=== PATIENT | male | born 1990 | race Caucasian/White ===

== ENCOUNTER 2018-03-04 03:10 | Inpatient (IN) | payer OTHER ==
[~2018-03-04] VITALS: Ht 177.8 cm; Wt 72.6 kg
--- NOTE | 2018-03-04 03:41 | ED PSYCHIATRIC COMPLAINT ---
History of Present Illness General Chief Complaint: Psychiatric Related Complaint Stated Complaint: ATTEMPTED SUICIDE Source: patient, police Exam Limitations: evasive historian Vital Signs & Intake/Output Vital Signs & Intake/Output Vital Signs Date Time Temp Pulse Resp B/P B/P Pulse O2 O2 Flow FiO2 Mean Ox Delivery Rate 03/04 0844 96.0 70 16 112/63 99 Room Air 03/04 0613 98.0 74 17 122/68 97 Room Air 03/04 0335 97.2 89 18 126/75 98 Room Air 03/04 0321 Room Air Allergies Coded Allergies: No Known Allergies (03/04/18) Triage Note: PT BIBA FROM HOME S/P SI ATTEMPT. PT TIED ROPE AROUND NECK AND SENT PICTURE TO GIRLFRIEND BECAUSE THEY HAD AN ARGUMENT. PER PT THE PICTURE WAS TAKEN OUT OF CONTEXT AND DENIES SI HERE. DENIES HI. DENIES ILLICIT DRUG USE. PT HAS LIGATURE SMITH TO L SIDE OF NECK. PT INITIALLY CALM AND COOPERATIVE UPON ARRIVAL UNTIL POLICIES AND PROCEDURES WERE EXPLAINED REGARDING PT PEER. PT AGITATED ABOUT POC, SITTER IN PLACE PT IS AN ELOPEMENT RISK. SECURITY TO BEDSIDE FOR WANDING AND PT NOW CHANGING INTO BLUE PAPER SCRUBS. Triage Nurses Notes Reviewed? yes HPI: Patient presents for evaluation of an attempted hanging. According to the police, the patient's girlfriend had cut him down after attempted hanging himself with an extension cord. The patient himself states that he did have an altercation with his girlfriend and he walked to the train tracks. He then returned home took a shower and at that point the police showed up and brought him to the emergency department. He states that he was simply trying to get back at his girlfriend and that he didn't even have the extension cord "connected to anything". Patient states that he smokes occasional marijuana but denies alcohol use or cigarette smoking. He has no specific complaint at this time. (Ashley WHITMAN,Abhijit Peñaloza) Reconcile Medications No Known Home Medications (Jazmin WHITMAN,Christopher) Past History Travel History Traveled to [place] past 21 day No Medical History Any Pertinent Medical History? see below for history Neurological: NONE EENT: NONE Cardiovascular: NONE Respiratory: NONE Gastrointestinal: NONE Hepatic: NONE Renal: NONE Musculoskeletal: NONE Psychiatric: NONE Endocrine: NONE Blood Disorders: NONE Cancer(s): NONE PROGRAM SUPPORT SPECIALIST/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: NONE Surgical History Surgical History: non-contributory Psychosocial History What is your primary language Congolese Tobacco Use: Never used Illicit Drug Use: marijuana Family History Hx Contributory? No (Ashley WHITMAN,Abhijit Peñaloza) Review of Systems Review of Systems Constitutional: Reports: no symptoms. EENTM: Reports: no symptoms. Respiratory: Reports: no symptoms. Cardiovascular: Reports: no symptoms. GI: Reports: no symptoms. Genitourinary: Reports: no symptoms. Musculoskeletal: Reports: no symptoms. Skin: Reports: no symptoms. Neurological/Psychological: Reports: see HPI. Hematologic/Endocrine: Reports: no symptoms. Immunologic/Allergic: Reports: no symptoms. All Other Systems: Reviewed and Negative (Ashley WHITMAN,Abhijit Peñaloza) Physical Exam Physical Exam General Appearance: see below Neurological/Psychiatric: see below Comments: Gen.: Well-nourished, well-developed, no acute respiratory distress. Head: Normocephalic, atraumatic. Eyes: Normal inspection bilaterally Ears: Normal inspection bilaterally Nose: Normal inspection Throat/mouth : Moist mucosa Neck: Supple, full range of motion, no goiter, linear erythema encircling the neck consistent with mild ligature smith, no stridor, no ecchymoses Heart: Regular rate and rhythm, no murmurs rubs or gallops Lungs: Clear to auscultation bilaterally with normal air entry Chest: Nontender Back: Normal range of motion Abdomen: Soft, nontender, nondistended, normal bowel sounds Extremities: Normal range of motion grossly, equal radial pulses, no cyanosis clubbing or edema Neurologic: Cranial nerves grossly intact, speech is clear Skin: warm and dry Psychiatric: Calm, cooperative, no apparent delusions or hallucinations, patient appears frustrated and mildly agitated SAD PERSONS Done? deferred to crisis (Ashley WHITMAN,Abhijit Peñaloza) Progress Differential Diagnosis: anxiety, depression, grieving, borderline personality disorder Plan of Care: Orders Procedure Date/time Status Regular Diet 03/04 L Active Continuous Observation Monitor 03/04 1900 Active Continuous Observation Monitor 03/04 1500 Active Continuous Observation Monitor 03/04 1100 Active Patient Data - inpatient psych 03/04 1009 Active Admit to inpatient psych 03/04 1009 Active Continuous Observation Monitor 03/04 0700 Active Continuous Observation Monitor 03/04 0340 Active URINE DRUG SCREEN FOR ER ONLY 03/04 0340 Complete ETHANOL 03/04 0340 Complete CBC WITHOUT DIFFERENTIAL 03/04 340 Complete BASIC METABOLIC PANEL 03/04 340 Complete ED CRISIS PSYCH CONSULT 03/04 340 Active Vital Signs 03/04 UNK Active Activity/Ambulation 03/04 UNK Active Current Medications Sig/Iker Start time Last Medication Dose Stop Time Status Admin Hydroxyzine HCl 50 MG Q6P PRN 03/04 1015 UNVr (Atarax) Trazodone HCl 50 MG AT BEDTIME NEED.. 03/04 1015 UNVr (Desyrel) Laboratory Tests 03/04/18 0357: Anion Gap 10, Estimated GFR > 60, BUN/Creatinine Ratio 17.0, Glucose 81, Calcium 9.2, CBC w Diff NO MAN DIFF REQ, RBC 3.80 L, MCV 86.3, MCH 30.2, MCHC 35.0, RDW 13.7, MPV 9.6, Gran % 55.0, Lymphocytes % 31.6, Monocytes % 6.8, Eosinophils % 6.1 H, Basophils % 0.5, Absolute Granulocytes 4.1, Absolute Lymphocytes 2.3, Absolute Monocytes 0.5, Absolute Eosinophils 0.5, Absolute Basophils 0, Serum Alcohol < 10.0 03/04/18 0327: Urine Opiates Screen 735.00, Methadone Screen < 40, Barbiturate Screen < 60, Ur Phencyclidine Scrn < 6.00, Amphetamines Screen < 100, U Benzodiazepines Scrn > 800 H, Urine Cocaine Screen < 50, Urine Cannabis Screen 27.20 Comments: 03/04/2018 7:28:29 AM patient signed out to Dr. Wu at shift currency exchange specialist. (Ashley WHITMAN,Abhijit Peñaloza) Departure Departure Disposition: STILL A PATIENT Departure Forms: Customer Survey General Discharge Information (Abhijit Ramirez MD) Departure Condition: Fair Clinical Impression Primary Impression: Depression with suicidal ideation Secondary Impressions: Suicide attempt Prescriptions: Current Visit Scripts No Known Home Medications Psych Admission Note Psychiatric Admission: I have seen and evaluated MAGGY SOLIZ. I have also reviewed all the pertinent lab results and diagnostic results. MAGGY SOLIZ will be admitted to our inpatient Psychiatric unit for treatment and care. (Jazmin WHITMAN,Christopher)
[2018-03-04 04:08] LABS: ABSOLUTE BASOPHIL COUNT 0 /CUMM (0.0-0.2); ABSOLUTE EOSINOPHIL COUNT 0.5 /CUMM (0.0-0.7); ABSOLUTE GRANULOCYTE CT 4.1 /CUMM (1.4-6.5); ABSOLUTE LYMPH COUNT 2.3 /CUMM (1.2-3.4); ABSOLUTE MONOCYTE COUNT 0.5 /CUMM (0.10-0.60); BASOPHIL % 0.5 % (0.0-2.0); EOSINOPHIL % 6.1 % (0-5); HEMATOCRIT 32.8 % (42-52); MEAN CORPUSCULAR HGB 30.2 PG (27.0-31.0); MEAN CORPUSCULAR VOLUME 86.3 FL (80.0-94.0); MEAN PLATELET VOLUME 9.6 FL (7.4-10.4); PLATELET COUNT 182 /CUMM (130-400); RBC DISTRIBUTION WIDTH 13.7 % (11.5-14.5); WHITE BLOOD CELL COUNT 7.4 /CUMM (4.8-10.8)
--- NOTE | 2018-03-04 09:52 | ED PSYCH CRISIS CONSULTATION ---
Crisis Consult Basic Assessment Date of Consult: 03/04/18 Responsible Person/Accompanied By: self Insurance Authorization: Insurance #1: Insurance name: SELF-PAY Phone number: Policy number: Group number: Authorization number: ED Provider: Patient's ED Provider: Abhijit Ramirez MD Primary Care Physician: Patient's PCP: Patient Has No Primary Care Dr PCP's Phone Number: Current Psychiatrist: n/a Chief Complaint: Psychiatric Related Complaint Patient's Quote: "I was just trying to make a point and took it too far." Present Illness: The pt is a 27yo male BIBA on a PEER for evaluation of SI. The medical record documents that 2x prior to this assessment the pt attempted to walk out of the ED and was stopped by ED staff. During this assessment the pt presented alert, oriented, cooperative and calm. The pt reports he was arguing with his girlfriend of 5 years when she stated the pt makes her want to end her life. The pt reports he then went to a closet, tied a short extension cord around a bar at chin height and wrapped the cord around his neck. The pt adamantly stated he had no intention of ending his life and instead wanted to scare his girlfriend. The pt stated "I was trying to make a point and too it too far." The pt reports his girlfriend then pulled him forward while cutting the cord with scissors. The pt reports the cord tightened when his girlfriend pulled him which left the visible namrata on his neck. The pt reports he then moved his girlfriend who was blocking the exit and went into the santos. The pt reports he then returned a short time later in order to vape and discovered the police were looking for him. The pt denies SI, HI, AH and VH. The pt denies any hx of SI. The pt denies any problems with mood, appetite or concentration. The pt is requesting discharge and stated he was trying to make a point to his girlfriend about threatening suicide. The pt reports he lost 4 friends due to suicide. The pt stated his girlfriend, parents and sister are supportive of him. The pts toxicology screen is positive for benzodiazepines. The pt reports he takes 1 Xanax per week which he buys off the street. The pt reports his only psychiatric treatment was at the age of 10 when his parents . Throughout the assessment the pt reiterated he had no intent to end his life and stated I have too much to live for. The pt stated he is concerned missing work will cost him his new job. 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 CSSRS completed and placed in the pts chart. This repairer typewriter spoke by phone with the pts girlfriend Merary Verde ). Merary stated she and the pt were arguing yesterday about an old stressor and current financial pressures. Merary reports the pt stated he will kill himself before walking to a closet, tying an extension cord around the bar and wrapping it around his neck. Merary reports the pt then pulled the cord tight with his hand and was more strangling than hanging. Merary reports the pts face was turning red and she then cut the cord with scissors. Merary reports after she cut the cord the pt unwrapped it from his neck and stated I am going into the santos to kill myself. Merary reports she then called the police as the pt walked into the santos. Merary stated while she was outside with the police the pt returned and was found showering in their apartment. Brittany reports she has been dating the pt for 5 years and they have been living together for 3 years. Brittany reports she is not aware of any past SI for the pt. Brittany reports the pt is not an impulsive person. Brittany stated she is aware the pt takes 1 pill of Xanax 1x per week. Pts presentation and hx discussed by phone with Dr. Kaufman, pt placed on a PEC with a plan for admission to [facility]. Addressed with the pt the PEC and plan for admission. Pt stated he disagrees with the plan for admission. Patient's Address: [address] [place] [address] Other Phone Number: Who Do You Live With? Other (see notes) (girlfriend) Family/Informants Interviewed: Girlfriend Merary Allergies - Coded Allergies: No Known Allergies (03/04/18) Current Medications - No Known Home Medications Laboratory Results: Laboratory Tests 03/04/18 0357: Anion Gap 10, Estimated GFR > 60, BUN/Creatinine Ratio 17.0, Glucose 81, Calcium 9.2, CBC w Diff NO MAN DIFF REQ, RBC 3.80 L, MCV 86.3, MCH 30.2, MCHC 35.0, RDW 13.7, MPV 9.6, Gran % 55.0, Lymphocytes % 31.6, Monocytes % 6.8, Eosinophils % 6.1 H, Basophils % 0.5, Absolute Granulocytes 4.1, Absolute Lymphocytes 2.3, Absolute Monocytes 0.5, Absolute Eosinophils 0.5, Absolute Basophils 0, Serum Alcohol < 10.0 03/04/18 0327: Urine Opiates Screen 735.00, Methadone Screen < 40, Barbiturate Screen < 60, Ur Phencyclidine Scrn < 6.00, Amphetamines Screen < 100, U Benzodiazepines Scrn > 800 H, Urine Cocaine Screen < 50, Urine Cannabis Screen 27.20 Past History Past Medical History Neurological: NONE EENT: NONE Cardiovascular: NONE Respiratory: NONE Gastrointestinal: NONE Hepatic: NONE Renal: NONE Musculoskeletal: NONE Psychiatric: NONE Endocrine: NONE Blood Disorders: NONE Cancer(s): NONE 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 ASSISTANT/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: NONE Past Surgical History Surgical History: non-contributory Psychosocial History Strengths/Capabilities: employed, stable housing, supportive girlfriend and family Physical Limitations (Interventions): n/a Psychiatric Treatment History Psych Treatment Psychiatric Treatment Yes Inpatient Treatment No Outpatient Treatment Yes Location of Treatment pt does not remember name of therapist Reason for Treatment parents divorce Dates of Treatment age of 10 Response to Treatment unknown Diagnosis by History: n/a Substance Use/Abuse History Drug Use/Abuse Substances Used/Abused Yes Substance Used/Abused Benzodiazepines First Use pt reports he is unsure Last Used pt reports 03/02/18 How much used/taken "1 pill of Xanax" How often pt reports 1x per week For how long unkown Route of use ingest Substance Abuse Treatment Substance Abuse Treatment Past Substance Abuse [place] No Current Mental Status Mental Status Orientation: Person, Place, Situation Affect: WNL Speech: WNL Neuro-vegetative: WNL Appearance Appearance- Dress/Hygiene: appropriate Behaviors Thought Process: WNL Thought Content: WNL Memory: WNL Insight: Poor SI/HI Risk Assessment Past Suicidal Ideation/Attempts No Current Suicidal Ideation/Att No (denied) Past Homicidal Ideation/Att: No Current Homicidal Ideation/Attempts No Degree of Intent: Made Preparations, Plan, Self Destructive/No Danger To: Self Gravely Disabled: Lack of Insight, Poor Impulse Control, Poor Judgment Risk Factors: access to lethal means, substance abuse, poor impulse control, male Lethality Ratin PTSD Checklist PTSD Done? patient declined ED Management Sitter: Yes Restraints: No DSM5/PS Stressors/Medical Prob Diagnosis' (DSM 5, Stressors, Medical): F32.9 Unspecified Depressive Disorder Current GAF: 29 Departure Disposition Psych Medical Clearance Date: 03/04/18 Medically Cleared at: 0800 Time Started: 0800 Time Ended: 0900 Psychiatrist Consulted: Dr. Kaufman Date Disposition Established: 03/04/18 Time Disposition Established: 1005 Plan for Disposition - Modality: Inpatient Psychiatry Facility: [facility] Rationale for Disposition: Pt is a risk to self and in need of hospitalization for safety. Pt placed on a PEC. Type of IP Admission: PEC Referrals Patient Has No Primary Care Dr (PCP/Family)
--- NOTE | 2018-03-04 11:14 | IP CRISIS DIAG ASSESS PSYCH ---
See Addendum Diagnostic Assessment Basic Assessment Primary Care Physician: Patient's PCP: Patient Has No Primary Care Dr PCP's Phone Number: Patient's Quote: "I was just trying to make a point andtook it too far." Present Illness: The pt is a 27yo male BIBA on a PEER for evaluation of SI. The medical record documents that 2x prior to this assessment the pt attempted to walk out of the ED and was stopped by ED staff. During this assessment the pt presented alert, oriented, cooperative and calm. The pt reports he was arguing with his girlfriend of 5 years when she stated the pt makes her want to end her life. The pt reports he then went to a closet, tied a short extension cord around a bar at chin height and wrapped the cord around his neck. The pt adamantly stated he had no intention of ending his life and instead wanted to scare his girlfriend. The pt stated "I was trying to make a point and too it too far." The pt reports his girlfriend then pulled him forward while cutting the cord with scissors. The pt reports the cord tightened when his girlfriend pulled him which left the visible namrata on his neck. The pt reports he then moved his girlfriend who was blocking the exit and went into the santos. The pt reports he then returned a short time later in order to vape and discovered the police were looking for him. The pt denies SI, HI, AH and VH. The pt denies any hx of SI. The pt denies any problems with mood, appetite or concentration. The pt is requesting discharge and stated he was trying to make a point to his girlfriend about threatening suicide. The pt reports he lost 4 friends due to suicide. The pt stated his girlfriend, parents and sister are supportive of him. The pts toxicology screen is positive for benzodiazepines. The pt reports he takes 1 Xanax per week which he buys off the street. The pt reports his only psychiatric treatment was at the age of 10 when his parents . Throughout the assessment the pt reiterated he had no intent to end his life and stated I have too much to live for. The pt stated he is concerned missing work will cost him his new job. 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 CSSRS completed and placed in the pts chart. This engineering technical writer spoke by phone with the pts girlfriend Merary Nixon ). Merary stated she and the pt were arguing yesterday about an old stressor and current financial pressures. Merary reports the pt stated he will kill himself before walking to a closet, tying an extension cord around the bar and wrapping it around his neck. Merary reports the pt then pulled the cord tight with his hand and was more strangling than hanging. Merary reports the pts face was turning red and she then cut the cord with scissors. Merary reports after she cut the cord the pt unwrapped it from his neck and stated I am going into the santos to kill myself. Merary reports she then called the police as the pt walked into the santos. Merary stated while she was outside with the police the pt returned and was found showering in their apartment. Brittany reports she has been dating the pt for 5 years and they have been living together for 3 years. Brittany reports she is not aware of any past SI for the pt. Brittany reports the pt is not an impulsive person. Brittany stated she is aware the pt takes 1 pill of Xanax 1x per week. Pts presentation and hx discussed by phone with Dr. Kaufman, pt placed on a PEC with a plan for admission to [facility]. Addressed with the pt the PEC and plan for admission. Pt stated he disagrees with the plan for admission. Patient's Address: [address] [place] [address] Other Phone Number: Who Do You Live With? Other (see notes) (girlfriend) Feel Safe Where You Live? Yes Feel Safe in Your Relationship Yes Marital Status: single Do You Have Children? No Primary Language? Russian Language(s) Spoken At Home: Russian Family/Informants Interviewed: Girlfriendarwin Reagan Allergies - Coded Allergies: No Known Allergies (03/04/18) Current Medications - No Known Home Medications Consequences of Psych Med Use: n/a Lab Results: Laboratory Tests 03/04/18 0357: Anion Gap 10, Estimated GFR > 60, BUN/Creatinine Ratio 17.0, Glucose 81, Calcium 9.2, CBC w Diff NO MAN DIFF REQ, RBC 3.80 L, MCV 86.3, MCH 30.2, MCHC 35.0, RDW 13.7, MPV 9.6, Gran % 55.0, Lymphocytes % 31.6, Monocytes % 6.8, Eosinophils % 6.1 H, Basophils % 0.5, Absolute Granulocytes 4.1, Absolute Lymphocytes 2.3, Absolute Monocytes 0.5, Absolute Eosinophils 0.5, Absolute Basophils 0, Serum Alcohol < 10.0 03/04/18 0327: Urine Opiates Screen 735.00, Methadone Screen < 40, Barbiturate Screen < 60, Ur Phencyclidine Scrn < 6.00, Amphetamines Screen < 100, U Benzodiazepines Scrn > 800 H, Urine Cocaine Screen < 50, Urine Cannabis Screen 27.20 Toxicology Screen Completed? Yes Results: positive Symptoms of Use: Pt reports taking Xanax 1x per week. Denies any negative consequences. Past History Past Medical History Medical History: None/Denies Past Surgical History Surgical History non-contributory Abuse/Trauma History Trauma History/Current Trauma: Denies Legal History Current Legal Status: none Have you ever been arrested? No Number of Arrests: [address] Dates: n/a [place] n/a Psychosocial History Strengths/Capabilities: employed, stable housing, supportive girlfriend and family Physical Limitations (Interventions): n/a Psychiatric Treatment History Psych Treatment Psychiatric Treatment Yes Inpatient Treatment No Outpatient Treatment Yes Location of Treatment pt does not remember name of therapist Reason for Treatment parents divorce Dates of Treatment age of 10 Response to Treatment unknown Diagnosis by History: n/a Risk Factors: access to lethal means, substance abuse, poor impulse control, male Substance Use/Abuse History Drug Use/Abuse minimum 12mo Hx Substances Used/Abused Yes Substance Used/Abused Benzodiazepines First Use pt reports he is unsure Last Used pt reports 03/02/18 How much used/taken "1 pill of Xanax" How often pt reports 1x per week For how long unkown Route of use ingest Substance Abuse Treatment Substance Abuse Treatment Past Substance Abuse [place] No Sexual History Sexually Active Yes Sexual Orientation Heterosexual Education History Highest Level of Education: high school/GED Preferred Learning Style: visual, auditory, experiential Current Mental Status Mental Status Orientation: Person, Place, Situation Affect: WNL Speech: WNL Neuro-vegetative: WNL Appearance Appearance- Dress/Hygiene: appropriate Behaviors Thought Process: WNL Thought Content: WNL Memory: WNL Insight: Poor SI/HI Risk Assessment - Minimum 6mo History- Past Suicidal Ideation/Attempts No Current Suicidal Ideation/Att No (denied) Past Homicidal Ideation/Att: No Current Homicidal Ideation/Attempts No Degree of Intent: Made Preparations, Plan, Self Destructive/No Danger To: Self Gravely Disabled: Lack of Insight, Poor Impulse Control, Poor Judgment Risk Factors: access to lethal means, substance abuse, poor impulse control, male Lethality Ratin Needs/Init TX Plan/Goals: Monitor mental status and safety, participate in medication management, individual, group and milieu therapy. AUDIT-C Questionnaire: AUDIT-C Questionnaire: Response Value ETOH use in the past year Never 0 Total 0 DSM5/PS Stressors/Medical Prob Diagnosis' (DSM 5, Stressors, Medical): F32.9 Unspecified Depressive Disorder Current GAF: 29
[2018-03-04 11:51] VITALS: BP 137/77
--- NOTE | 2018-03-04 12:00 | CPS PROVIDER INIT ASMT PSYCH ---
Psychiatric Admission Engine Cleaner's Note Reviewed: Yes Patient Seen and Examined: Yes Identifying Information: 27yoM with no formal psych hx Chief Complaint: "things got blown out of proportion" Reaction to Hospitalization: none History of Present Illness Onset of Illness: recent Circumstances Leading to Admission: ?SA Problem(s) Justifying Need for Admission: danger to self Other HPI: Pt recounted details leading to hospitalization. Maintains that trying to scare gf but admits that actions were indeed concerning. He notes that he has "a temper" but feels that overall doing OK. Mulitple psychosocial stressors recently as well as interpersonal difficulties. Became very tearful when recounted finding his father at 10yo with slit wrist in the middle of suicide attempt. Denies manic, psychotic sx. Has FBs to that event. Past Psychiatric History Past Diagnosis(es)- if any: Opiate Use disorder Sedative use disorder Nicotine dependence Past Precipitating Factors- if any: n/a - Include inpatient and outpatient treatment Treatment History: Saw therapist after parents divorce at 10yo History of Suicide Attempts or Gestures Denied Substance Abuse History: Tobacco: used to smoke 1ppd, now 1ppw with vaping Alcohol: had a 2-3 wk period after rehab where drank heavily in 2016 Illicits: takes xanax bar (2mg total) every Monday "to relax." Doing past 2 months; Perocet abuse at past, went to rehab at [facility] (PHP, IOP, and OP for six months) in [id number], no opiates since then; mj occaionsally, last was 2 weeks ago, denies other drugs Allergies: Coded Allergies: No Known Allergies (03/04/18) Home Med List: none - Include any medical condition(s) that may - impact the patient's recovery/remission Past Medical History: not contributary Past History Medical History Neurological: NONE EENT: NONE Cardiovascular: NONE Respiratory: NONE Gastrointestinal: NONE Hepatic: NONE Renal: NONE Musculoskeletal: NONE Psychiatric: NONE Endocrine: NONE Blood Disorders: NONE Cancer(s): NONE DIRECTOR OF PLACEMENT/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: NONE Isolation History: Standard Surgical History Surgical History: non-contributory Psychiatric Family/Social Hx Family History Psychiatric Illness: father with ?depression Substance Use: father, grandfather with AUD Suicides: father attempted suicide by slitting wrist and then pt found him, pt was 10yo Social History Living Situation: lives with gf of 5yrs past 3yrs Significant Relationships (family/friends): gf Education: GED 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 - #1 Recognizing dangerous situations. - #2 Coping Skills. - #3 Basic information about quitting. Status of Tobacco Cessation Counseling: #1, #2 AND #3 Completed Cessation Med Status Nicotine Patch Ordered Alcohol Screening - ETOH screen POS if BAL >=80 or Audit-C>= M4/F3 Audit-C Score from Diag Assess: 0 Blood Alcohol Level: Laboratory Tests 03/04 357 Toxicology Serum Alcohol (<10 MG/DL) < 10.0 Alcohol Use Screening Results: Neg per Audit C &/or BAL - If ETOH counseling indicated - the following topics are required. - #1 Express concern about the patient's - drinking at unhealthy levels, include informing - of national norms for moderate drinking: - men <= 14 drinks/week, max 4 drinks/occasion - women <= 7 drinks/week, max 3 drinks/occasion - #2 Providing feedback, including linking alcohol to - negative physical effects (liver injury, hypertension) - negative emotional effects (relationship problems and - depression) - negative occupational consequences (reduced work - performance) - #3 Advising the patient to abstain from alcohol or - to drink below national norms for moderate drinking - (as listed above). Status of ETOH Use Counseling: N/A B/C NO ETOH Use Metabolic Screening - Screen if on a Neuroleptic Medication - Metabolic screening should include: - Blood Pressure, BMI, Glucose or Hgb A1c, & a - Lipid profile from within the past 365 days. Metabolic Screening Laboratory Tests 03/04 03/04 0357 [id number] Chemistry Sodium (137 - 145 mmol/L) 139 Potassium (3.5 - 5.1 mmol/L) 4.3 Chloride (98 - 107 mmol/L) 100 Carbon Dioxide (22 - 30 mmol/L) 29 Anion Gap (5 - 16) 10 BUN (9 - 20 mg/dL) 17 Creatinine (0.7 - 1.2 mg/dL) 1.0 Estimated GFR (>60 ml/min) > 60 BUN/Creatinine Ratio (7 - 25 %) 17.0 Glucose (65 - 99 mg/dL) 81 Calcium (8.4 - 10.2 mg/dL) 9.2 Hematology CBC w Diff NO MAN DIFF REQ WBC (4.8 - 10.8 /CUMM) 7.4 RBC (4.70 - 6.10 /CUMM) 3.80 L Hgb (14.0 - 18.0 G/DL) 11.5 L Hct (42 - 52 %) 32.8 L MCV (80.0 - 94.0 FL) 86.3 MCH (27.0 - 31.0 PG) 30.2 MCHC (33.0 - 37.0 G/DL) 35.0 RDW (11.5 - 14.5 %) 13.7 Plt Count (130 - 400 /CUMM) 182 MPV (7.4 - 10.4 FL) 9.6 Gran % (42.2 - 75.2 %) 55.0 Lymphocytes % (20.5 - 51.1 %) 31.6 Monocytes % (1.7 - 9.3 %) 6.8 Eosinophils % (0 - 5 %) 6.1 H Basophils % (0.0 - 2.0 %) 0.5 Absolute Granulocytes (1.4 - 6.5 /CUMM) 4.1 Absolute Lymphocytes (1.2 - 3.4 /CUMM) 2.3 Absolute Monocytes (0.10 - 0.60 /CUMM) 0.5 Absolute Eosinophils (0.0 - 0.7 /CUMM) 0.5 Absolute Basophils (0.0 - 0.2 /CUMM) 0 Toxicology Urine Opiates Screen (>2000 NG/ML) 735.00 Methadone Screen (>300 NG/ML) < 40 Barbiturate Screen (>200 NG/ML) < 60 Ur Phencyclidine Scrn (>25 NG/ML) < 6.00 Amphetamines Screen (>1000 NG/ML) < 100 U Benzodiazepines Scrn (>200 NG/ML) > 800 H Urine Cocaine Screen (>300 NG/ML) < 50 Urine Cannabis Screen (>50 NG/ML) 27.20 Serum Alcohol (<10 MG/DL) < 10.0 Exam and Plan Mental Status Examination Ambulation Status: walking freely Appearance: younger than stated age Attitude towards examiner: cooperative, defensive initally Psychomotor activity: no retardation or agitation Behavior: cooperative Quality of speech: nl r/r/p/v Affect: irritable, non-labile, tearful discussing finding his father with slit wrist, appropriate Mood: "I don't want to be here" Suicidal Ideation: denied Homicidal Ideation: denied Hallucinations: denied Paranoid/Delusional Material: denied Difficulties with thought organization: none noted Insight: poor Judgment: poor Orientation: a/o x4 Cognition: grossly intact Memory Function: grossly intact Estimate of intellectual functioning: average Assets/Strengths Patient Identified Assets/Strengths: able to communicate, supportive relationship Impression/Plan Impression and Plan: Pt with hx of PSD and likely underly PTSD which has been untreated who had concerning behaviors for suicide attempt in the setting of worsening interpersonal difficulties with primary support and fiancial difficulties. - Would like to explore PTSD sx further, pt so tearful unable to question around these symptoms - Pt declining to start SSRI at this time - Need collateral - Counselled on BDZ abuse - Encourage f/u treatment - Include all active medical diagnosis that require tx DSM 5 Diagnosis(es): Unspecificed mood disorder PTSD, likely underlying disorder Nicotine dependence Sedative use disorder OUD, in full sustained remission Cannibus use disorder - Initial Tx Plan for Active Psych & Medical Conditions Treatment Plan: see above - Factors that would help patient function - in a less restrictive setting. Factors: psychiatric treatment
--- NOTE | 2018-03-04 15:08 | SOCIAL WORKER SOCIAL HX PSYCH ---
Social History Basic Assessment Insurance Authorization: Insurance #1: Insurance name: SELF-PAY Phone number: Policy number: Group number: Authorization number: Curr Source of Income/Entitlements: employment Primary Care Physician: Patient's PCP: Patient Has No Primary Care Dr PCP's Phone Number: Present Problem: The pt is a 27yo male BIBA on a PEER for evaluation of SI. The medical record documents that 2x prior to this assessment the pt attempted to walk out of the ED and was stopped by ED staff. During this assessment the pt presented alert, oriented, cooperative and calm. The pt reports he was arguing with his girlfriend of 5 years when she stated the pt makes her want to end her life. The pt reports he then went to a closet, tied a short extension cord around a bar at chin height and wrapped the cord around his neck. The pt adamantly stated he had no intention of ending his life and instead wanted to scare his girlfriend. The pt stated "I was trying to make a point and too it too far." The pt reports his girlfriend then pulled him forward while cutting the cord with scissors. The pt reports the cord tightened when his girlfriend pulled him which left the visible namrata on his neck. The pt reports he then moved his girlfriend who was blocking the exit and went into the santos. The pt reports he then returned a short time later in order to vape and discovered the police were looking for him. The pt denies SI, HI, AH and VH. The pt denies any hx of SI. The pt denies any problems with mood, appetite or concentration. The pt is requesting discharge and stated he was trying to make a point to his girlfriend about threatening suicide. The pt reports he lost 4 friends due to suicide. The pt stated his girlfriend, parents and sister are supportive of him. The pts toxicology screen is positive for benzodiazepines. The pt reports he takes 1 Xanax per week which he buys off the street. The pt reports his only psychiatric treatment was at the age of 10 when his parents . Throughout the assessment the pt reiterated he had no intent to end his life and stated I have too much to live for. The pt stated he is concerned missing work will cost him his new job. 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 CSSRS completed and placed in the pts chart. This flex o writer operator spoke by phone with the pts girlfriend Merary Withington ([phone]). Merary stated she and the pt were arguing yesterday about an old stressor and current financial pressures. Merary reports the pt stated he will kill himself before walking to a closet, tying an extension cord around the bar and wrapping it around his neck. Merary reports the pt then pulled the cord tight with his hand and was more strangling than hanging. Merary reports the pts face was turning red and she then cut the cord with scissors. Merary reports after she cut the cord the pt unwrapped it from his neck and stated I am going into the santos to kill myself. Merary reports she then called the police as the pt walked into the santos. Merary stated while she was outside with the police the pt returned and was found showering in their apartment. Brittany reports she has been dating the pt for 5 years and they have been living together for 3 years. Brittany reports she is not aware of any past SI for the pt. Brittany reports the pt is not an impulsive person. Brittany stated she is aware the pt takes 1 pill of Xanax 1x per week. Pts presentation and hx discussed by phone with Dr. Kaufman, pt placed on a PEC with a plan for admission to [facility]. Addressed with the pt the PEC and plan for admission. Pt stated he disagrees with the plan for admission. Percy Prasad COUNTER DISH CARRIER> 03/04/18 Primary Language? Angolan Language(s) Spoken At Home: Angolan Living Situation Rents or Owns Home? rents Feel Safe Where You Are Living Yes Feel Safe in Relationships? Yes Allergies - Coded Allergies: No Known Allergies (03/04/18) Current Medications - No Known Home Medications Past History Past Medical History Neurological: NONE EENT: NONE Cardiovascular: NONE Respiratory: NONE Gastrointestinal: NONE Hepatic: NONE Renal: NONE Musculoskeletal: NONE Psychiatric: NONE Endocrine: NONE Blood Disorders: NONE Cancer(s): NONE BELLOWS CHARGER ASSEMBLER/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: NONE Past Surgical History Surgical History: non-contributory /Family History Place/Country of Origin: [place] Childhood Family Constellation: Raised by Mom and Dad. Pasrents when he was 10 and he was back and fourth between them. Has 2 sisters Primary Childhood Caretakers: father, mother Family Life During Childhood: It was rough at first, but then it became very pleasent DCF Involvement? Yes Explain: When I was a teen my father and I got into a fight, but it was quickly dismissed. Mother's Age (Current/): 50 Relationship w/Mother: very close Father's Age (Current/): 56 Relationship w/Father: very close Any Sibling(s)? Yes Sibling's Gender(s)/Age(s): female Sibling 1:, female Sibling 2: Relationship w/Sibling(s): very close Relationship w/Friends: I have a 3 close friends in [place] and many other friends as well Family Psych/Sub Abuse/Add Hx: my father is recovered from alcoholism Abuse/Trauma History Trauma History/Current Trauma: Denies Legal History Current Legal Status: none Pending Court Dates: 0 Have you ever been arrested No Number of Arrests: 0 Hx of Juvenile Legal Charges? No Hx of Adult Legal Charges? No Hand Thermal Cutter n/a Psychosocial History Primary Support System: mother, sibling(s) Strengths/Capabilities: employed, stable housing, supportive girlfriend and family Weaknesses: recent relapse Physical Limitations (Interventions): n/a Last Physical: 6 months ago History of Seizures? No History of Blackouts? Yes Last Blackout: 8 years ago ADL Limitations: none reported Lagrange/Social/Peer Relations reports many social supports Meaningful Activities: I love my job climbing trees Childhood Yarsanism: Mandaeism Current Anglican Affiliation: Buddhist Is Spirituality Important to You? yes Patient's Ethnicity: I'm a mutt Cultural/Ethnic Issues: denies Are There Developmental Issues? No Milestones Achieved: fine motor, gross motor Psychiatric Treatment History Psych Treatment Inpatient Treatment No Outpatient Treatment Yes Location of Treatment pt does not remember name of therapist Reason for Treatment parents divorce Dates of Treatment age of 10 Response to Treatment unknown Precipitating Factors: argument with girlfriend Current Farm Supervisor: none Treatment of Prior Episodes: denies Diagnosis: n/a Psychodynamic Issues: denies Risk Factors: access to lethal means, substance abuse, poor impulse control, male Substance Use/Abuse History Drug Use/Abuse:Min 12 mo hx Substance Used/Abused Benzodiazepines First Use pt reports he is unsure Last Used pt reports 6/1/18 How much used/taken "1 pill of Xanax" How often pt reports 1x per week For how long unkown Route of use ingest Have Had Periods of Sobriety? Yes Explain: 1.5 years Relapse History? Yes Explain: recently relapsed on opiates and benzos after 1.5 years sober Have You Ever Attended AA? Yes Do You Attend AA Currently? Yes Do You Have a Sponsor? Yes Symptoms of Use: Pt reports taking Xanax 1x per week. Denies any negative consequences. Substance Abuse Treatment Substance Abuse Treatment Inpatient Treatment Yes Outpatient Treatment No Location of Treatment [place] Reason for Treatment Opiate and benzo use Dates of Treatment 1.5 years ago Response to Treatment 1.5 years sober Sexual History Sexually Active Yes # of partners 1 Sexual Orientation Heterosexual Use of Protection No Sexual Concerns: none reported Education History Highest Level of Education: high school/GED Highest Grade Completed: 10 Number of College Years: 0 Preferred Learning Style: visual, auditory, experiential HX of Learning Difficulties: None reported Barriers to Learning: None reported Special Communication Needs: None reported Employment History Employment Employed Vocation/Occupational Hx: [employer] No. of Jobs in Last 5 Years: 1 Attendance: Above average Performance: Exemplary History Have You Been in The ? No Current Mental Status Problem List: 1. Suicide attempt 2. Depression with suicidal ideation Mental Status Orientation: Person, Place, Situation Affect: WNL Speech: WNL Neuro-vegetative: WNL Appearance Appearance- Dress/Hygiene: appropriate Behaviors Thought Process: WNL Thought Content: WNL Memory: WNL Insight: Poor SI/HI Risk Assessment Past Suicidal Ideation/Attempts No Current Suicidal Ideation/Att No (denied) Past Homicidal Ideation/Att: No Current Homicidal Ideation/Attempts No Degree of Intent: Made Preparations, Plan, Self Destructive/No Danger To: Self Gravely Disabled: Lack of Insight, Poor Impulse Control, Poor Judgment Risk Factors: Male, Poor impulse control, Substance Abuse Lethality Ratin - Conclusion and Recommendations for treatment - and discharge planning Summary: The pt is a 27yo male BIBA on a PEER for evaluation of SI. The medical record documents that 2x prior to this assessment the pt attempted to walk out of the ED and was stopped by ED staff. During this assessment the pt presented alert, oriented, cooperative and calm. The pt reports he was arguing with his girlfriend of 5 years when she stated the pt makes her want to end her life. The pt reports he then went to a closet, tied a short extension cord around a bar at chin height and wrapped the cord around his neck. The pt adamantly stated he had no intention of ending his life and instead wanted to scare his girlfriend. The pt stated "I was trying to make a point and too it too far." The pt reports his girlfriend then pulled him forward while cutting the cord with scissors. The pt reports the cord tightened when his girlfriend pulled him which left the visible namrata on his neck. The pt reports he then moved his girlfriend who was blocking the exit and went into the santos. The pt reports he then returned a short time later in order to vape and discovered the police were looking for him. The pt denies SI, HI, AH and VH. The pt denies any hx of SI. The pt denies any problems with mood, appetite or concentration. The pt is requesting discharge and stated he was trying to make a point to his girlfriend about threatening suicide. The pt reports he lost 4 friends due to suicide. The pt stated his girlfriend, parents and sister are supportive of him. The pts toxicology screen is positive for benzodiazepines. The pt reports he takes 1 Xanax per week which he buys off the street. The pt reports his only psychiatric treatment was at the age of 10 when his parents . Throughout the assessment the pt reiterated he had no intent to end his life and stated I have too much to live for. The pt stated he is concerned missing work will cost him his new job. 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 CSSRS completed and placed in the pts chart. This flex o writer operator spoke by phone with the pts girlfriendarwin Reagan Withington ([phone]). Merary stated she and the pt were arguing yesterday about an old stressor and current financial pressures. Tormikki reports the pt stated he will kill himself before walking to a closet, tying an extension cord around the bar and wrapping it around his neck. Tory reports the pt then pulled the cord tight with his hand and was more strangling than hanging. Tory reports the pts face was turning red and she then cut the cord with scissors. Merary reports after she cut the cord the pt unwrapped it from his neck and stated I am going into the santos to kill myself. Merary reports she then called the police as the pt walked into the santos. Merary stated while she was outside with the police the pt returned and was found showering in their apartment. Brittany reports she has been dating the pt for 5 years and they have been living together for 3 years. Brittany reports she is not aware of any past SI for the pt. Brittany reports the pt is not an impulsive person. Brittany stated she is aware the pt takes 1 pill of Xanax 1x per week. Pts presentation and hx discussed by phone with Dr. Kaufman, pt placed on a PEC with a plan for admission to [facility]. Addressed with the pt the PEC and plan for admission. Pt stated he disagrees with the plan for admission. Percy Prasad COUNTER DISH CARRIER> 03/04/18
[2018-03-04 15:33] VITALS: BP 127/76
[2018-03-04 20:01] VITALS: BP 110/71
[2018-03-05 07:43] VITALS: BP 121/58
[2018-03-05 12:18] VITALS: BP 108/59
--- NOTE | 2018-03-05 14:46 | CP SOUTH PROGRESS NOTE PSYCH ---
Psych (Inpt) Progress Note Progress Note Include the following elements, when applicable: Involvement in the active treatment of the patient with behavioral observations of the patient and the patient's response to the treatment. Review of the ongoing treatment process in the context of the treatment plan. Indication of how multi-disciplinary staff members are carrying out the treatment plan. Plans for future interventions and recommendations for revision of the treatment plan. Liaison with other physicians/providers. Progress Note: Dr. Kaufman's note reviewed. Medication list reviewed. Case and treatment plan discussed in team meeting. Staff reports that the patient is denying SI. Has been at a rehab in the past. Had a recent relapse with opiates and benzos. Settled-in. Upset about being here. Patient seen at 12:25 pm. States he had a little miscommunication with his girlfriend "and I took it a little to far." States they had been arguing. They recently moved to [place] from [place] to save money (for drugs). It was too far for girlfriend to travel to her job in [place]. She reportedly threatened to drive her car into the [place]. States that the other night, he decided to reverse roles with her and staged a hanging attempt. A close friend hanged himself at age 12 when this patient was 13. Patient reports being in recovery from drugs. Relapsed in November. Drug of choice is Percocet but states he has also been dabbling in Xanax lately. Girlfriend reportedly has a substance problem and is at [facility] now. Thin, casually dressed WM. States he wasn't suicidal. Affect is calm and blunted. Feels fine. Mood: "it's more focussed than anything." States he is bummed with himself for hiding the relapse from his sponsor. Reports father had a stroke 6 years ago, is aphasic, and resides at an assisted living facility in [place]. Affect is calm and blunted. Mood: rates sad mood like a 1/10. Anxiety 0/10. Denies feeling hopeless, helpless or worthless. Feels guilty for suicide gesture and for relapse. Denies active and passive SI, HI, AH, VH, PI and magical anand. Ox3 except 03/06/18. Sleep: restless, trazodone helps. Appetite : increasing. Energy: not the highest amount in the world but getting it back, 6-7/10 with [address] Was [address] Suboxone 8 mg/week. Denies other suicide attempts or gestures. Does not want regular psychiatric medication. Reports opiate withdrawal symptoms of aches and pains. Prn clonidine is available. Hope to go to a rehab in [facility]. IMPRESSION: Slow progress. Continue rpesent treatment plan. Monitor for opiate and benzodiazepine withdrawal. Additional information is needed from collaterals. We will look into rehab placement(s).
[2018-03-05 16:11] VITALS: BP 108/59
[2018-03-05 16:14] VITALS: BP 108/59
--- NOTE | 2018-03-05 17:47 | History & Physical ---
General Information and [facility] MD Statement: I have seen and personally examined MAGGY SOLIZ and documented this H&P. The patient is a 27 year old M who presented after his girlfriend found him attempting to hang himself with an exention cord. Source of Information: patient Exam Limitations: no limitations History of Present Illness: The patient is a 27 yo male with h/o depression and substance abuse (opioid/? benzos) who presented after being found by his girlfriend trying to hang himself using an extension cord. He had some mild abrasions on the right side of his neck. He has had h/o detox (3 month) in [place] with subsequent sobriety x 1.5 years, however had a recent relapse of substance abuse (opioids/benzos). He admits to Percocet and Xanax use as well as occasional marijuana. He denied ny significant injury to his neck or residual pain. He appears motivated to detox and wishes to return to [place] to live with a friend and do rehab there again. 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 . FATHER (NO MED ISSUES). MATERNAL GRANDPARENTS (H/O DM). . Psychosocial History Where do you live? Home Services at Home: None Primary Language: French Smoking Status: Current Everyday Smoker ETOH Use: denies use Illicit Drug Use: marijuana, benzodiazepines, PERCOCET Functional Ability ADLs Independent: dressing, eating, toileting, bathing. 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 EENTM: Denies: no symptoms. Cardiovascular: Denies: no symptoms. Respiratory: Denies: no symptoms. GI: Denies: no symptoms. Genitourinary: Denies: no symptoms. Musculoskeletal: Denies: no symptoms. Skin: Denies: no symptoms. Neurological/Psychological: Reports: anxiety, depressed, emotional problems. Hematologic/Endocrine: Denies: no symptoms. Immunologic/Allergic: Denies: no symptoms. Exam & Diagnostic Data Last 24 Hrs of Vital Signs/I&O Vital Signs Date Time Temp Pulse Resp B/P B/P Pulse O2 O2 Flow FiO2 Mean Ox Delivery Rate 03/05 1954 96.6 62 122/50 / 1947 96.6 62 122/50 / 1614 62 108/59 03/05 1611 62 108/59 /04 1305 66 108/59 / 1218 66 108/59 / 0743 97.6 60 121/58 Physical Exam General Appearance Alert, Oriented X3, Cooperative, No Acute Distress Skin No Rashes, No Breakdown, No Significant Lesion HEENT Atraumatic, PERRLA, EOMI, Mucous Membr. moist/pink Neck Supple, No JVD, No thryomegaly, +2 Carotid Pulse wo Bruit, No LAD, SM ABRASIONS X2 RT NECK Cardiovascular Regular Rate, Normal S1, Normal S2, No Murmurs Lungs Clear to Auscultation, Normal Air Movement Abdomen Normal Bowel Sounds, Soft, No Tenderness, No Hepatospenomegaly, No Masses Neurological Exam Findings: Normal Gait, Normal Speech, Strength at 5/5 X4 Ext, Normal Tone, Sensation Intact, Cranial Nerves 3-12 NL, Reflexes 2+ Cranial Nerves II through XII: INTACT Extremities No Clubbing, No Cyanosis, No Edema, Normal Pulses, No Tenderness/ Swelling Vascular Normal Pulses, Pulses Symmetrical Last 24 Hrs of Labs/Jey: Laboratory Tests 03/05/18 0610: Iron 123, TIBC 280, Ferritin 124.0, Vitamin B12 638, TSH &T3 &Free T4 Intrp 0.317 Assessment/Plan Assessment: Impression/Plan: #Depression/Suicidal Ideation- as above, threatened to hang himself in his bathroom. Plan: Admit to psychiatry ad treatment for above. #Substance Abuse- ? admits to Percocet/Xanax use. Plan: Lorazepam, Gabapentin, Benztropine as per psychiatry. As Ranked By This Provider Problem List: 1. Suicide attempt 2. Depression with suicidal ideation Miscellaneous Miscellaneous Documentation Attending Case Discussed With: Mikayla WHITMAN,Leonardo Primary Care Physician: Patient Has No Primary Care Dr Patient sees these Specialists NONE Level of Patient Care: [facility] Resident Review Statement Resident Statement: examined this patient, discussed with international banker, agreed with international banker, reviewed EMR data (avail), discussed with nursing, discussed with case mgmt, reviewed images Attending MD Review Statement Attending Statement Attending MD Statement: examined this patient, discuss w/resident/PA/BUGGY RUNNER, agreed w/resident/PA/BUGGY RUNNER, discussed with family, reviewed EMR data (avail), reviewed images Attending Assessment/Plan: As above.
--- NOTE | 2018-03-05 18:28 | SOCIAL WORKER PROG NOTE PSYCH ---
Social Work Progress Note Progress Note This engineering technical writer met with patient. He discussed feeling as though his actions leading to admission were inappropriate and he denied SI. Patient stated that he had been using Percocets daily, anywhere from 2-8 30mg tablets, depending on funds and/or access. He also reported Suboxone use in order to manage withdrawal so he could go to work or sleep. He stated that an 8mg strip of Suboxone would last one week. Patient stated that he would like to go to a rehab in [place], [facility], which he has attended in the past. He stated that he has been in contact with Matt Murillo at this rehab ) and that his sister, Rose Marie Claudio ([phone]) would assist with cost , including airfare. Patient denied SI/HI/AH/VH. He is agreeable to a family meeting with his sister.
[2018-03-05 19:47] VITALS: BP 122/50
[2018-03-05 19:54] VITALS: BP 122/50
[2018-03-06] VITALS (8 sets, daily range): BP systolic 130–139; BP diastolic 64–73
--- NOTE | 2018-03-06 14:30 | CP SOUTH PROGRESS NOTE PSYCH ---
Psych (Inpt) Progress Note Progress Note Include the following elements, when applicable: Involvement in the active treatment of the patient with behavioral observations of the patient and the patient's response to the treatment. Review of the ongoing treatment process in the context of the treatment plan. Indication of how multi-disciplinary staff members are carrying out the treatment plan. Plans for future interventions and recommendations for revision of the treatment plan. Liaison with other physicians/providers. Progress Note: Case and treatment plan discussed in team meeting. Staff reports that the patient is denying suicidal ideation. CIWA scores are unremarkable. Out in the milieu. Family meeting is scheduled. Patient seen at 10:08 AM with medical student. Patient reports he is here because he tried to scare his girlfriend. States he was high on Xanax and was angry about past occurrences. Apparently the patient was upset about a text message from another male that he found on girlfriend's Snapchat. Affect is calm and blunted. Reports mood is good. Rates sad mood and anxiety both 0/10. Denies feeling hopeless, helpless or worthless. Feels a little guilty for relapsing. Denies active and passive suicidal ideation. Denies homicidal ideation. Denies auditory and visual hallucinations and paranoid ideation. Reports sleep is good and appetite is high. Reports energy is "a little rambunctious for this place." Reports he is used to being outside. Reports he is trying to read more. Reports withdrawal symptoms of aches and pains but no other symptoms. He thinks clonidine may be helpful. Patient reports there will be a family meeting with his mother and 2 sisters tomorrow at 10:30 AM. IMPRESSION: Slow progress. Continue present treatment plan. Anticipate likely discharge within the next 48 hours to go to a rehab program in [place].
--- NOTE | 2018-03-06 15:15 | SOCIAL WORKER PROG NOTE PSYCH ---
See Addendum Social Work Progress Note Progress Note Patient called [phone] to activate his insurance. ID: [id number] Reference number: [id number] Information provided to Amy in the business office, ext. [phone] This verse writer met with patient. He described his mood as "good. I'm in good spirits." He denied SI/HI/AH/VH. Patient stated that he is interested in going to "rehab" in [place]. Patient was agreeable to a family meeting tomorrow at 10 :30am. This verse writer spoke with Matt Murillo ([phone]) at [facility] in [place]. Matt stated that the patient needs to have completed detox prior to coming to their program. He stated that the patietn would not go to their rehab program, but would go directly to their sober living program. He prefers for the patient to have completed a 30 program prior to coming to [facility] , but may allow him to enter their sober living program without a 30 day program.
[2018-03-07 07:40] VITALS: BP 116/66
[2018-03-07 07:43] VITALS: BP 116/66
[2018-03-07] MEDS ORDERED: NICOTINE PATCH1 EAC1 TOP (09:36)
[2018-03-07] MEDS ORDERED: TRAZODONE HCL50 M1 PO (09:36)
[2018-03-07] MEDS ORDERED: GABAPENTIN300 M2 PO (09:36)
--- NOTE | 2018-03-07 09:49 | Patient Discharge Instructions ---
Psych Discharge Inst General Discharge Information Reason for Admission: Hanging/strangulation attempt. Psy Discharge Primary Diag+ Unspecified depression Psy Discharge Secondary Diag+ R/o PTSD Benzodiazepine use d/o Cannabis use d/o Hx opioid use d/o S/p hanging attempt Summary Tests/Major Procedures Lab BUN 17 mg/dL 03/04/18 0357 Calcium 9.2 mg/dL 03/04/18 0357 Carbon Dioxide 29 mmol/L 03/04/18 0357 Chloride 100 mmol/L 03/04/18 0357 Creatinine 1.0 mg/dL 03/04/18 0357 Estimated GFR > 60 ml/min 03/04/18 0357 Ferritin 124.0 ng/mL 03/05/18 0610 Glucose 81 mg/dL 03/04/18 0357 Potassium 4.3 mmol/L 03/04/18 0357 Sodium 139 mmol/L 03/04/18 0357 TSH &T3 &Free T4 Intrp 0.317 uIU/mL 03/05/18 0610 Vitamin B12 638 pg/mL 03/05/18 0610 Eosinophils % 6.1 % H 03/04/18 0357 Hct 32.8 % L 03/04/18 0357 Hgb 11.5 G/DL L 03/04/18 0357 Plt Count 182 /CUMM 03/04/18 0357 RBC 3.80 /CUMM L 03/04/18 0357 WBC 7.4 /CUMM 03/04/18 0357 Serum Alcohol < 10.0 MG/DL 03/04/18 0357 U Benzodiazepines Scrn > 800 NG/ML H 03/04/18 0327 Urine Cannabis Screen 27.20 NG/ML 03/04/18 0327 Urine Opiates Screen 735.00 NG/ML 03/04/18 0327 Studies Pending at DC: None. Patient Instructions Contact Information Your Psychiatrist on [facility] was Leonardo Degroot MD * If you are experiencing an emergency related to this hospitalization, please call [phone] to contact the treating psychiatrist or the psychiatrist-on- call. * To Request a copy of your medical records, please contact the Medical Records Department at [phone]. * To request results of studies pending at the time of discharge, please call [phone]. * Continue your Medications until directed to stop by your Healthcare provider. General Medication Information Please continue to take your new medications and your continued home medications , unless otherwise indicated on your discharge medication list, or unless directed by your MD or OFFICE SERVICES CLERK to stop them. Special Instructions Diet Regular Activity Normal Other Inst/Recommendations Stay away from drugs and alcohol. - Tobacco Use Treatment Offered Post DC Medications Offered: Script Given-See Med List Post DC Tobacco Treatment Plan: Other Tobacco Tx Pgm ([facility] in [facility]) Program Appt Date: 03/08/18 Program Appt Time: 1000 - EtOH/Drug Use D/O Treatment Offered Post DC Medications Offered: Med Not Indicated for D/O Post DC EtOH/SubAbuse TX Plan: Other SubAbuse/Dual Pgm ([facility] in [facility]) Program Appt Date: 03/08/18 Program Appt Time: 1000 Metabolic Screening ([x]) Not Applicable, patient not on a neuroleptic. OR () Patient on a neuroleptic(s) . Enter below results for Hemoglobin A1C, and lipid panel if obtained during the last 365 days. BMI: 22.900 Blood Pressure: 116/66 Laboratory Results From [facility] E[facility] (If applicable): Advance Directives Does the Patient have Medical Advance Directives No/Refused further info Does Pt have Psychiatric Advance Directives? No/Refused further info Does Patient have a Designated Surrogate Decision Maker: No Information About Psychiatric Advance Directives Provided? Yes Discharge Plan Post Hospital Treatment Plan: [facility] in [place] today.
--- NOTE | 2018-03-07 16:46 | CP SOUTH PROGRESS NOTE PSYCH ---
Psych (Inpt) Progress Note Progress Note Include the following elements, when applicable: Involvement in the active treatment of the patient with behavioral observations of the patient and the patient's response to the treatment. Review of the ongoing treatment process in the context of the treatment plan. Indication of how multi-disciplinary staff members are carrying out the treatment plan. Plans for future interventions and recommendations for revision of the treatment plan. Liaison with other physicians/providers. Progress Note: Case and treatment plan discussed in team meeting. Staff reports that the patient is denying SI. Feeling ready to go. In a good mood. Optimistic and hopeful. Attended AA. Patient seen at 10:09 a.m. Was sitting in lounge prior to meeting with me in office. Feels good. Has no complaints. Feels "excited." Affect is calm and blunted. Sad 0/10. Anxiety 0/10. Denies feeling hopeless, helpless or worthless. Feeling less guilty. Denies active and passive SI, HI, AH, VH and PI. Sleep: good. Appetite: strong. Energy: "it's coming more and more each day." Tolerating medications well, without complaint. Feels ready and safe for discharge. I briefly joined family meeting with patient, mother, sisters and director social service. Patient's and family members' questions were addressed. Patient apparently broke up with his girlfriend. IMPRESSION: Condition improved. Okay for discharge today to go to [facility].
--- NOTE | 2018-03-07 16:57 | DISCHARGE SUMMARY REPORT-PSYCH ---
Visit Information Visit Dates/Diagnosis' Admission Date: 03/04/18 Discharge Date: 03/07/18 Reason for Admission: Hanging/strangulation attempt. Psy Discharge Primary Diag: Unspecified depression Psy Discharge Secondary Diag: R/o PTSD Benzodiazepine use d/o Cannabis use d/o Hx opioid use d/o S/p hanging attempt Hospital Course Significant Lab Findings: Lab BUN 17 mg/dL 03/04/18 0357 Calcium 9.2 mg/dL 03/04/18 0357 Carbon Dioxide 29 mmol/L 03/04/18 0357 Chloride 100 mmol/L 03/04/18 0357 Creatinine 1.0 mg/dL 03/04/18 0357 Estimated GFR > 60 ml/min 03/04/18 0357 Ferritin 124.0 ng/mL 03/05/18 0610 Glucose 81 mg/dL 03/04/18 0357 Potassium 4.3 mmol/L 03/04/18 0357 Sodium 139 mmol/L 03/04/18 0357 TSH &T3 &Free T4 Intrp 0.317 uIU/mL 03/05/18 0610 Vitamin B12 638 pg/mL 03/05/18 0610 Eosinophils % 6.1 % H 03/04/18 0357 Hct 32.8 % L 03/04/18 0357 Hgb 11.5 G/DL L 03/04/18 0357 Plt Count 182 /CUMM 03/04/18 0357 RBC 3.80 /CUMM L 03/04/18 0357 WBC 7.4 /CUMM 03/04/18 0357 Serum Alcohol < 10.0 MG/DL 03/04/18 0357 U Benzodiazepines Scrn > 800 NG/ML H 03/04/18 0327 Urine Cannabis Screen 27.20 NG/ML 03/04/18 0327 Urine Opiates Screen 735.00 NG/ML 03/04/18 0327 Course Complications: None. Consultations: The patient was seen by Dr. Mele Pedro for admission H&P. Please refer to Dr. Fong's note for additional information. Allergies: Coded Allergies: No Known Allergies (03/04/18) Hospital Course/TX Response: The patient was monitored on the unit for safety, substance withdrawal and mood disorder. He participated in multi-modal treatments on the unit. Prns of baclofen, Bentyl and clonidine were available for opiate withdrawal. Withdrawal syndrome was mild. Prns of gabapentin and trazodone were available. No standing psychiatric medications were clearly indicated, so none were ordered. The patient maintained that his suicide gesture was for attention-seeking towards his now ex-girlfriend. Mood and affect have improved. Suicidal ideation has remitted. Progress note from date of discharge, 03/07/18: "Case and treatment plan discussed in team meeting. Staff reports that the patient is denying SI. Feeling ready to go. In a good mood. Optimistic and hopeful. Attended AA. Patient seen at 10:09 a.m. Was sitting in lounge prior to meeting with me in office. Feels good. Has no complaints. Feels "excited." Affect is calm and blunted. Sad 0/10. Anxiety 0/10. Denies feeling hopeless, helpless or worthless. Feeling less guilty. Denies active and passive SI, HI, AH, VH and PI. Sleep: good. Appetite: strong. Energy: "it's coming more and more each day." Tolerating medications well, without complaint. Feels ready and safe for discharge. I briefly joined family meeting with patient, mother, sisters and social services designee. Patient's and family members' questions were addressed. Patient apparently broke up with his girlfriend. IMPRESSION: Condition improved. Okay for discharge today to go to [facility] in [facility]." Discharge HBIPS - Tobacco Use Treatment Offered Post DC Medications Offered: Script Given-See Med List Post DC Tobacco Treatment Plan: Other Tobacco Tx Pgm Program Appt Date: 03/08/18 (TBA Through [facility]) Program Appt Time: 1000 - EtOH/Drug Use D/O Treatment Offered Post DC Medications Offered: Med Not Indicated for D/O Post DC EtOH/SubAbuse TX Plan: Other SubAbuse/Dual Pgm ([facility] in [facility]) Program Appt Date: 03/08/18 Program Appt Time: 1000 Metabolic Screening - Screen if on a Neuroleptic Medication - Metabolic screening should include: - Blood Pressure, BMI, Glucose or Hgb A1c, & a - Lipid profile from within the past 365 days. Metabolic Screening ([x]) Not Applicable, patient not on a neuroleptic. OR () Patient on a neuroleptic(s) . Enter below results for Hemoglobin A1C, and lipid panel if obtained during the last 365 days. BMI: 22.900 Blood Pressure: 116/66 Laboratory Results From [facility] EHR (If applicable): Discharge Instructions General Discharge Information Multiple Neuroleptics: ([x]) Not Applicable OR Document below three failed attempts at monotherapy, or a plan to taper to monotherapy, or augmentation of Clozapine. () Discharge Diet Regular Discharge Activity Normal DC Disposition: Plane ride today to [facility]. Referrals Ordered Referrals Provider Referral 03/07/18 For Providers: [[facility]] For Groups: [Sober Living] [facility] [address] [phone] (Matt Murillo) Patient will fly from [employer] with [employer] at 4:55pm today, 03/07/18, to [facility]. Patient will be provided transportation from [facility] to [facility]. Provider Referral For Groups: [Smoking Cessation Group] [facility] program will assist the patient in identifying a smoking cessation group. Prescriptions Start taking the following new medications: Nicotine (Nicotine Patch) 7 MG/24 HOUR PATCH.TD24 1 Patch On the skin DAILY Qty = 14 No Refills Comments: Last Taken:03/07/18 Time:8AM Gabapentin (Gabapentin) 300 MG CAPSULE 1 Capsule ORAL EVERY SIX HOURS NEEDED as needed for ANXIETY/AGITATION/ INSOMNIA Qty = 42 No Refills Comments: Last Taken:03/07/18 Time:8AM Trazodone HCl (Trazodone HCl) 50 MG TABLET 1 Tablet ORAL AT BEDTIME as needed for SLEEP Qty = 14 No Refills Comments: Last Taken:03/07/18 Time:9:45PM Other Inst/Recommendations Stay away from drugs and alcohol. Studies Pending at Discharge None. Copies To: [facility]
--- NOTE | 2018-03-07 17:52 | SOCIAL WORKER PROG NOTE PSYCH ---
Social Work Progress Note Progress Note This insurance underwriter sales met with the patient, his mother and two sisters for a family meeting. They discussed concerns leading up to inpatient admission as well as discharge plans. This insurance underwriter sales shared efforts to identify a 30 day inpatient program, as inquired by Matt Murillo at [facility] yesterday. This included calling crisis and respite locations as this insurance underwriter sales was informed that there were wait times for some programs contacted (other programs could not be reached and voicemails were left). Patient maintains that he is not willing to attend a program if there is a wait as he is concerned how the risk of use during this time. Patient's family members expressed the same concerns and stated that they would rather that he go directly to [facility]. Family members all denied any concerns about the patient today and feel comfortable with the discharge plan to go to [facility] in [place] today. Patient's sister, Rose Marie, stated that she will be with him the entire afternoon and will drive him to [facility]. Dr. Degroot attended this meeting in part and discussed medications, including questions and concerns presented by the patient and his family. Patient will be provided with medications at no cost as his insurance has not been activated yet. Patient denied SI/HI/AH/VH. He identified a safety plan to call family or friends and immediately inform staff at [facility]. Patient will fly from [facility] today at 4:55pm with [employer] to [facility], landing at 8:10pm. This insurance underwriter sales spoke with Matt Murillo ) regarding his travel plans. He stated that the patient will be met at the airport and transported to [facility], [facility], by program staff (this was relayed to the patient). Matt shared that the patient will be going to the [facility] program where he will reside and attend clinical 2 times per week. Patient stated that he has also been informed by Matt that he will begin work tomorrow, which is part of the program. Matt requested that the discharge documents are faxed and that no other clinical is needed. He will assist the patient in identifying a smoking cessation group. This insurance underwriter sales provided the following information to Matt Murillo: 1. 24/04 contact: Dr. Degroot, 2. Contact info for studies pending at discharge: Dr. Degroot, 3. Follow up care: patient will be provided [facility] 4. records coordinator at [facility]: Dr. Tom Romano [address] Multiple attempts were made to reach Matt Murillo (number listed above an on his website and via e-mail) to obtain the fax number to fax discharge documents. This insurance underwriter sales also contacted patient's sister to inquire about an alternate phone number as well as [facility] where Matt is also listed as a staff member. Faxed Referral(s) Referred To: [facility] Transition of Care Documents sent: Health Summary, W10 Faxed to: [facility] Faxed by: Giovani Eller LCSW
== END 2018-03-07 11:37 | DRG 754 ==
LOC: ERH 03:10 → ERHI 10:09 → CP SOUTH 10:09 → ENTRNSPT 10:58 → EDTRNSPTSTS 11:08 → EDTRNSPT 11:08 → CP SOUTH 11:13 → CMPTRNSPT 11:24 → CP SOUTH 03-05 10:12
PROVIDERS: Emergency Medicine
DX: F32.9 Major depressive disorder, single episode, unspecified (principal); F12.90 Cannabis use, unspecified, uncomplicated; F11.90 Opioid use, unspecified, uncomplicated; Z91.5 Personal history of self-harm; F13.90 Sedative, hypnotic, or anxiolytic use, unspecified, uncomplicated
CPT/HCPCS: 36415; 80307; G0480; J0515; J1630